=== PATIENT | male | born 1945 | race Caucasian/White ===

== ENCOUNTER → 2021-06-18 17:56 | Outpatient (CLI) | payer MEDICARE, BC, SELFPAY ==
--- NOTE | 2021-06-18 18:05 | MRI_ITS ---
STUDY: MR Spine Lumbar W/O Contrast 06/18/2021 7:15 PM REASON FOR EXAM: Male, 75 years old. Right leg pain LUMBAR PAIN WITH RADICULOPATHY TECHNIQUE: MR Spine Lumbar W/O Contrast Standardized fat and water weighted pulse sequences were obtained. COMPARISON: Plain film 06/05/2021 FINDINGS: T12-L1: Normal endplates. Normal disc height, hydration and morphology. Normal bilateral facet joints. Normal central canal and bilateral lateral recesses. Normal bilateral intervertebral neural foramina. Normal lumbar lordosis. There is a levoscoliosis of the lumbar spine. Normal conus medullaris that terminates at the L1. There are calcifications of the abdominal aorta. This is consistent for atherosclerotic disease. There is no abdominal aortic aneurysm. L1-2: Loss of intervertebral disc height. There is endplate spondylosis of the vertebral body. Normal central canal and intervertebral neuroforamina. There is bilateral facet arthropathy. Posterior disc bulge L2-3: Loss of intervertebral disc height. There is endplate spondylosis of the vertebral body. There is bilateral facet arthropathy. There is bilateral ligamentum flavum thickening. Moderate spinal stenosis. Posterior disc herniation. Narrowing of the lateral recess. L3-4: Loss of intervertebral disc height. There is endplate spondylosis of the vertebral body. There is bilateral facet arthropathy. Right neural foraminal stenosis. Compression of exiting nerve roots. There is bilateral ligamentum flavum thickening. Moderate spinal stenosis. Posterior disc herniation. Narrowing of the lateral recess. L4-5: Loss of intervertebral disc height. There is endplate spondylosis of the vertebral body. There is bilateral facet arthropathy. Bilateral neural foraminal stenosis. Compression of exiting nerve roots. There is bilateral ligamentum flavum thickening. Severe spinal stenosis. Posterior disc herniation. Narrowing of the lateral recess. L5-S1: Loss of intervertebral disc height. There is endplate spondylosis of the vertebral body. There is bilateral facet arthropathy. Left paracentral disc herniation. Bilateral neural foraminal stenosis. Compression of exiting nerve roots. There is bilateral ligamentum flavum thickening. There is a Grade 1 anterolisthesis of L5 on S1. Moderate spinal stenosis. Normal visualized sacral ala. Normal visualized paraspinous soft tissue structures. MRI/Spine Lumbar (Routine) IMPRESSION: Multilevel degenerative changes, as described above. Left paracentral disc herniation causing severe left neural foraminal stenosis. Compression of exiting left L5 nerve root. Disc herniation at L4-5 causing severe spinal stenosis. Disc herniation at L3-4 causing moderate spinal stenosis. Disc herniation at L2-3 causing moderate spinal stenosis. Electronically Signed: Evan Pelaez MD at 19:20 EST , Service support ,
== END ==
PROVIDERS: PCP Family Medicine; Referring Provider Orthopaedic Surgery; Visit Provider Orthopaedic Surgery
DX: M54.50 Low back pain, unspecified (principal); M54.16 Radiculopathy, lumbar region
CPT/HCPCS: 72148